=== PATIENT | male | born 1990 | race African-American/Black ===

== ENCOUNTER 2019-11-22 12:32 | Outpatient (CLI) | payer OTHER, SELFPAY ==
--- NOTE | ~2019-11-22 | US_ITS ---
EXAMINATION: US scrotum doppler DATE: 11/22/2019 13:17 INDICATION: Testicular atrophy TECHNIQUE: Testicular sonogram utilizing grayscale and Doppler COMPARISON: None. FINDINGS: The right testis measures 2.3 x 1.0 x 2.0 cm. The left testis measures 3.5 x 1.9 x 2.4 cm. Symmetric normal grayscale appearance to both testes. There is normal vascular flow to both testes. No abnormal testicular masses or lesions identified. The right epididymis is normal with normal vascular flow. 4 mm anechoic epididymal cyst at the head of the left epididymis. The left epididymis is otherwise nor mal with normal vascular flow. There is no varicocele or hydrocele. IMPRESSION: 1. Nonspecific mild atrophy of the right testis of indeterminate etiology or significance with symme tric parenchymal echogenicity on grayscale images and and symmetric flow in the bilateral testes on c olor Doppler. Reviewed, dictated and finalized at location A. IMPRESSION: 1. Nonspecific mild atrophy of the right testis of indeterminate etiology or s ignificance with symmetric parenchymal echogenicity on grayscale images and and symmetric flow in the bilateral testes on color Doppler.
== END 2019-11-22 12:33 | disposition home or self-care (01) ==
LOC: ANHIMG 12:38
PROVIDERS: Visit Provider Urology
DX: N50.0 Atrophy of testis (principal)
CPT/HCPCS: 76870; 93976